=== PATIENT | male | born 1960 | race Caucasian/White ===

== ENCOUNTER 2019-09-10 10:14 | Emergency (ER) | payer MEDICARE, OTHER ==
[~2019-09-10] VITALS: Ht 167.6 cm; Wt 72.6 kg
[2019-09-10] MEDS ORDERED: BUPR-51 PO (10:28)
[2019-09-10] MEDS ORDERED: ASPI-1152 PO (10:28)
[2019-09-10] MEDS ORDERED: CLON0.5T4 PO (10:28)
[2019-09-10] MEDS ORDERED: LORA-259 PO (10:28)
[2019-09-10] MEDS ORDERED: TERA2CAP4 PO (10:28)
[2019-09-10] MEDS ORDERED: NITR0.4T48 SL (10:28)
[2019-09-10] MEDS ORDERED: MELO-107 PO (10:28)
[2019-09-10] MEDS ORDERED: MIRT30TA7 PO (10:28)
[2019-09-10] MEDS ORDERED: GABA-532 PO (10:28)
[2019-09-10 10:29] LABS: BASOPHILS % (AUTO) 0.4 % (0.0-2.0); EOSINOPHILS % (AUTO) 1.4 % (0.0-6.0); HEMATOCRIT 45 % (39-51); HEMOGLOBIN 15.2 g/dL (13.5-17.5); LYMPHOCYTES # (AUTO) 3.6 /CMM (0.8-4.8); LYMPHOCYTES % (AUTO) 41.5 % (20.0-44.0); MEAN CORPUSCULAR HGB CONC 34 g/dl (31.0-36.0); MEAN CORPUSCULAR VOLUME 93 fL (80-96); MONOCYTES # (AUTO) 0.8 /CMM (0.1-1.30); MONOCYTES % (AUTO) 8.8 % (2.0-12.0); NEUTROPHILS # (AUTO) 4.1 /CMM (1.8-8.9); NEUTROPHILS % (AUTO) 47.9 % (43.0-81.0); PLATELET COUNT (AUTO) 236 /CMM (150-450); RED BLOOD CELL COUNT(AUTO) 4.89 MIL/uL (4.5-6.0); WHITE BLOOD COUNT (AUTO) 8.6 K/uL (4.3-11.0)
[2019-09-10] MEDS ORDERED: METOCLOPRAMIDE HCL 10 MG/2 ML VIAL IV ONE (10:30)
[2019-09-10] MEDS ORDERED: LORAZEPAM INJ 2 MG/ML VIAL IV ONE (10:30)
[2019-09-10] MEDS ORDERED: ACETAMINOPHEN 650 MG/20.3 ML UDC PO ONE (10:30)
--- NOTE | 2019-09-10 10:30 | NUR ---
PT REC'D TO ER C/O CP EKG DONE NEG IV STARTED 20G RT [facility] DRAWN SENT TO LAB
[2019-09-10] MEDS ORDERED: LORAZEPAM INJ 2 MG/ML VIAL ONE (10:32)
[2019-09-10] MEDS ORDERED: METOCLOPRAMIDE HCL 10 MG/2 ML VIAL ONE (10:33)
[2019-09-10] MEDS ORDERED: ACETAMINOPHEN 325 MG TABLET ONE (10:33)
[2019-09-10 10:37] LABS: CALCIUM, SERUM 9.2 mg/dL (8.5-10.1); CARBON DIOXIDE 29 mmol/L (21-32); CHLORIDE 105 mmol/L (98-107); CREATININE 0.8 mg/dL (0.6-1.3); GLUCOSE 98 mg/dL (74-106); POTASSIUM 4.1 mmol/L (3.5-5.1); SODIUM SERUM 142 mmol/L (136-145); UREA NITROGEN, BLOOD 13 mg/dL (7-18)
--- NOTE | 2019-09-10 10:45 | NUR ---
PT GIVEN MEDS PER MD ORDER VERY ANXIOUS HX DEPRESSION ANXIETY
[2019-09-10] MEDS ORDERED: KETOROLAC TROMETHAMINE 15 MG/ML VIAL ONE (10:58)
[2019-09-10] MEDS ORDERED: IV NS 0.9% 1,000 ML BAG IV ONE (11:00)
[2019-09-10] MEDS ORDERED: KETOROLAC TROMETHAMINE INJ 30 MG/ML VIAL IM ONE (11:00)
--- NOTE | 2019-09-10 11:56 | NUR ---
PT STATED FEELING BETTER
--- NOTE | 2019-09-10 13:10 | NUR ---
STAT LAB CALLED FOR REPEAT TROPONIN DRAW.
[2019-09-10 14:21] VITALS: BP 111/72
== END 2019-09-10 14:23 | disposition home or self-care (01) ==
LOC: ER 10:16
DX: R07.89 Other chest pain (principal); R51 Headache; F41.9 Anxiety disorder, unspecified; R42 Dizziness and giddiness; M19.90 Unspecified osteoarthritis, unspecified site; F32.9 Major depressive disorder, single episode, unspecified; Z90.49 Acquired absence of other specified parts of digestive tract; Z90.89 Acquired absence of other organs; Z98.890 Other specified postprocedural states; Z79.899 Other long term (current) drug therapy; Z79.82 Long term (current) use of aspirin
CPT/HCPCS: 36415; 71045; 80048; 84484 ×2; 85025; 93005 ×2; 96361; 96372; 96374; 96375; 99285; J1885; J2060; J2765; J7030